=== PATIENT | female | born 2000 | race Two or more races ===

== ENCOUNTER 2025-01-23 12:13 | Emergency (ER) | payer OTHER ==
[~2025-01-23] VITALS: Ht 154.9 cm; Wt 95.6 kg
--- NOTE | 2025-01-23 12:44 | ED.PDOC ---
Musculoskeletal HPI Comments 24 year old female with no past medical history presents to the emergency department with a chief complaint of atraumatic LT arm pain onset 1 day. Patient states she began experiencing LT arm pain located to the lateral humeurs, worse when lifting arm, pain radiates to LT side chest wall, rates pain as moderate. She had control placed August 2024 on LT arm, LMP was July 2024. Patient describes pain as a squeezing sensation. No other symptoms or modifying factors present at this time. Denies headache head injury back pain Denies fever chills nausea/vomiting Denies shortness of breath Denies fall, injury Chief Complaint: Upper Extremity Time Seen by MD: 12:30 Reviewed Notes: Nurses Notes, Medications, Allergies Allergies: Coded Allergies: NO KNOWN ALLERGIES (Unverified , 01/23/25) Home Meds Active Scripts Nitrofurantoin Monohydrate Mac (Macrobid) 100 Mg Cap, 100 MG PO BID for 5 Days, #10 CAP 0 Refills Prov:FAMILIA SEYMOUR NP 01/23/25 Ibuprofen Micronized (Ibuprofen) 600 Mg Tab, 600 MG PO TID for 10 Days, #30 TAB 0 Refills Prov:FAMILIA SEYMOUR DIRECTOR AUTOMOTIVE 01/23/25 Information Source: Patient Location: Left Extremity Location: Arm Timing: Days Prehospital treatment: None Severity: Moderate Able to Move Extremity: Yes Bear Weight: Limited Pain: Moderate Hand Dominance: Right Mechanism: Spontaneous Circumstances: Spontaneous Onset of Symptoms: Spontaneous Symptoms: Pain DVT Risk Factors: NONE Associated signs and symptoms: Arm pain (LT), Chest pain (LT sided) Past Medical History PAST MEDICAL HISTORY: Denies Surgical History: Denies all surgeries PATIENT COMPANION History: No Pertinent PATIENT COMPANION History Family History Family History: Reviewed,noncontributory to illness, No family hx of Cancer, No family hx of DM, No family hx of Heart magdy, No family hx of HTN, No family hx ofKidney magdy, No family hx of Liver magdy, No family hx of Lung magdy, No family hx of Stroke Social History Smoker: Non-Smoker Alcohol: Denies ETOH Use Drugs: Denies Drug Use Lives In: Home All Other Systems: Reviewed and Negative (as per HPI) Physical Exam General Appearance: Normal HEENT: Normal ENT Inspection, Pharynx Normal, TMs Normal Neck: Other (RT spurling test positive) Respiratory: Chest Non-Tender, Lungs Clear, No Accessory Muscle Use, No Respiratory Distress, Normal Breath Sounds Cardiovascular: No Murmur, No Gallop, Regular Rate/Rhythm, Other (reproducible pain to LT anterior chest wall with palpation) Breast Exam: Deferred Gastrointestinal: No Organomegaly, Non Tender, No Pulsatile Mass, Normal Bowel Sounds, Soft Genitalia: Deferred Pelvic: Deferred Rectal: Deferred Extremities: No calf tenderness, Normal capillary refill, No pedal edema Musculoskeletal : Location: Left Extremity Location: Arm (LT upper arm tenderness that is aggravated with forward flexion, vascular sensation intact, radial pulses 2+, cap refill less than 3 seconds ) Apperance: Normal Neurologic: Alert, 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 Was a procedure done?: No Differential Diagnosis EXT Differential Diagnosis: Other X-Ray, Labs, Meds, VS Vital Signs Date Time Temp Pulse Resp B/P (MAP) Pulse Ox O2 Delivery O2 Flow Rate FiO2 01/23/25 15:46 98.6 01/23/25 12:56 98.8 79 16 119/71 (87) 98 98.8 01/23/25 12:56 79 16 98 Room Air 01/23/25 12:47 98.3 01/23/25 12:36 72 01/23/25 12:30 98.5 77 17 115/72 (86) 98 98.5 Lab Test 01/23/25 12:57 01/23/25 12:41 Range/Units Urine Color Light-yellow Yellow Urine Clarity Turbid H Clear Urine pH 7.0 5.0-9.0 Urine Specific [place] 1.024 1.001-1.035 Urine Protein Trace H Negative Urine Ketones Negative Negative Urine Blood Negative Negative /uL Urine Nitrite Negative Negative Urine Bilirubin Negative Negative Urine Urobilinogen Normal Negative mg/dL Urine Leukocyte Esterase 3+ Negative /uL Urine RBC 9 0 - 4 /hpf Urine Microscopic WBC 49 H 0-5 /HPF Urine Squamous Epithelial Cells Many <5 /hpf Urine Bacteria Few H None Seen /hpf Urine Mucus Few None Seen Urine Sperm Present None Seen /hpf Urine Glucose Normal Normal mg/dL Urine Test Negative Negative White Blood Count 5.3 4.4-10.8 10^3/uL Red Blood Count 5.27 H 4.0-5.20 10^6/uL Hemoglobin 14.1 12.2-16.2 g/dL Hematocrit 42.3 36.0-46.0 % Mean Corpuscular Volume 80.3 80.0-100.0 fL Mean Corpuscular Hemoglobin 26.8 L 28.0-32.0 pg Mean Corpuscular Hemoglobin Concent 33.3 32.0-36.0 g/dL Red Cell Distribution Width 17.0 H 11.8-14.3 % Platelet Count 233 140-450 10^3/uL Mean Platelet Volume 9.0 6.9-10.8 fL Neutrophils (%) (Auto) 62.1 37.0-80.0 % Lymphocytes (%) (Auto) 28.7 10.0-50.0 % Monocytes (%) (Auto) 7.9 0.0-12.0 % Eosinophils (%) (Auto) 0.8 0.0-7.0 % Basophils (%) (Auto) 0.5 0.0-2.0 % Neutrophils # (Auto) 3.3 1.6-8.6 10 ^3/uL Lymphocytes # (Auto) 1.5 0.4-5.4 10 ^3/uL Monocytes # (Auto) 0.4 0-1.3 10 ^3/uL Eosinophils # (Auto) 0 0-0.8 10 ^3/uL Basophils # (Auto) 0 0-0.2 10 ^3/uL Nucleated Red Blood Cells 0.0 % Sodium Level 143 136-145 mmol/L Potassium Level 4.1 3.5-5.1 mmol/L Chloride Level 109 H 98-107 mmol/L Carbon Dioxide Level 26 20-31 mmol/L Anion Gap 8 5-15 Blood Urea Nitrogen 6 L 9-23 mg/dL Creatinine 0.76 0.550-1.02 mg/dL Glomerular Filtration Rate Calc 114 >90 mL/min BUN/Creatinine Ratio 7.9 L 10.0-20.0 Serum Glucose 92 74-106 mg/dL Calcium Level 10.6 H 8.7-10.4 mg/dL Magnesium Level 2.0 1.6-2.6 mg/dL Total Bilirubin 0.8 0.2-1.0 mg/dL Aspartate Amino Transferase (AST) 16 13-40 U/L Alanine Aminotransferase (ALT) 18 7-40 U/L Alkaline Phosphatase 78 46-116 U/L Troponin I High Sensitivity < 3 L </=34 ng/L Total Protein 7.7 5.7-8.2 g/dL Albumin 5.0 H 3.2-4.8 g/dL Current Medications Medications (Trade) Dose Ordered Sig/Lore Route Start Time Stop Time Status Last Admin Acetaminophen (Tylenol Tablet) 650 mg ONCE ONCE PO 01/23/25 12:45 01/23/25 12:46 DC 01/23/25 12:47 Ceftriaxone Sodium (Rocephin) 1,000 mg ONCE ONCE IM 01/23/25 15:00 01/23/25 15:19 DC 01/23/25 15:46 Ketorolac Tromethamine (Toradol Injection) 60 mg ONCE ONCE IM 01/23/25 15:00 01/23/25 15:19 DC 01/23/25 15:45 [place] [id number] Ph: [phone] DIAGNOSTIC IMAGING Diagnostic Imaging Report : [id number] Signed PATIENT: JOSE G HATHAWAY MACCT: [id number] UNIT: [id number] : 2000 LOC: ER ROOM / BED: / AGE / SEX: 24 / F ADM STATUS: REG ER SERVICE 1235 ORDERING PHYSICIAN: FAMILIA SEYMOUR DIRECTOR AUTOMOTIVE PROCEDURE(s): LUDVT - LT Upper DVT REASON: PAIN ORDER NUMBER(s): [id number], ACCESSION NUMBER(s): [id number] Clinical History: PAIN Comparison: None Technique: Duplex Doppler evaluation of the deep venous system of the left lower extremity from the common femoral vein to the popliteal vein including color Doppler and spectral/pulsed waveform analysis was performed. Findings: The common femoral vein demonstrates appropriate compressibility and waveform variability. There is compressibility/patency of the great saphenous vein at the proximal thigh. The femoral vein demonstrates appropriate compressibility and waveform variability. The deep femoral vein demonstrates appropriate compressibility and waveform variability. The popliteal vein demonstrates appropriate compressibility and waveform variab ility. There is normal compressibility at the tibioperoneal trunk. Impression: No leftdeep venous thrombosis. If clinical concern/symptoms persist or worsen, short-interval follow-up study is suggested. ATED BY: ARIANNA ZARATE MD DICTATED DATE/TIME: 01/23/251450 SIGNED BY: ARIANNA ZARATE MD SIGNED DATE/TIME: 01/23/251450 CC: X-Ray, Labs, Meds, VS Comment 24 year old female with no past medical history presents to the emergency department with a chief complaint of LT arm pain onset 1 day. Patient arrives alert and oriented, ABC's intact, afebrile, vital signs stable, saturating well in room air Peripheral IV insertion+ labs were ordered. CBC was ordered to exclude anemia, blood loss, or infection. CMP was ordered to exclude electrolyte abnormalities, renal failure, dehydration, hyperglycemia and/or liver enzyme abnormalities. Troponin was ordered to rule out myocardial infarction, or congestive heart failure. Urinalysis was ordered to rule out UTI or hematuria. Magnesium PREGUA Diagnostic imaging ordered by me and results interpreted by radiology : US LT UPPER DVT: Impression: No leftdeep venous thrombosis. If clinical concern/symptoms persist or worsen, short-interval follow-up study is suggested. Labs showed incidental UTI Vital signs stable patient stable Patient tolerating p.o. fluids Encouraged parents to increase water intake Practice good personal hygiene. Always wipe from front to back Drink plenty of fluids to help flush bacteria out of the urinary tract Empty bladder completely as soon as you feel the urge Empty bladder after intercourse Prescribed p.o. antibiotics for presentation of symptoms Complete course of antibiotic therapy even if symptoms improve or resolve. There should be no leftover antibiotics as this can lead to antibiotic resistant bacteria and even worse infection. Parents verbalized understanding. Potential side effects discussed with patient including abdominal pain, nausea, diarrhea. Patient was given: Acetaminophen 650 mg PO,ceftriaxone 1000 mg IM, Ketorolac 60 mg IM. Tolerated medications with no adverse reaction. Additional MDM Review of External, Non-ED records: External records reviewed. Discussion with independent historian (EMS, family) history obtained from the patient/parents (if applicable) at bedside Chronic conditions affecting care: None Social determinants of health affecting care: None Consideration of admission (observation or admission): I considered escalation of care to admission for this patient, however given the reassuring workup, the patient is safe for outpatient management. Time of 1ST Reevaluation: 13:00 Reevaluation 1ST: Improved Patient Education/Counseling: Diagnosis, Treatment Family Education/Counseling: No Family Present Departure 1 Departure Time of Disposition: 15:30 Impression: Primary Impression: UTI (urinary tract infection) Qualified Codes: N30.00 - Acute cystitis without hematuria Additional Impression: Cervical radicular pain Disposition: HOME / SELF CARE / HOMELESS Condition: Stable e-Prescriptions Nitrofurantoin Monohydrate Mac (Macrobid) 100 Mg Cap 100 MG PO BID for 5 Days, #10 CAP 0 Refills Prov: FAMILIA SEYMOUR NP 01/23/25 Ibuprofen Micronized (Ibuprofen) 600 Mg Tab 600 MG PO TID for 10 Days, #30 TAB 0 Refills Prov: FAMILIA SEYMOUR NP 01/23/25 Critical Care Note Critical Care Time?: No Stability Stability form required: No Heart Score Heart Score: Heart Score Response (Comments) Value History N/A 0 EKG N/A 0 Age N/A 0 Risk Factors N/A 0 Troponin N/A 0 Total 0 I personally scribed for FAMILIA SEYMOUR DIRECTOR AUTOMOTIVE ([email or web address]) on 01/23/25 at 12:44. Electronically submitted by Payton Nath ([email or web address]). I personally scribed for FAMILIA SEYMOUR NP ([email or web address]) on 01/23/25 at 12:47. Electronically submitted by Payton Nath ([email or web address]). I personally scribed for FAMILIA SEYMOUR NP ([email or web address]) on 01/23/25 at 15:32. El ectronically submitted by Payton Nath ([email or web address]). FAMILIA SEYMOUR NP Jan 23, 2025 12:44
[2025-01-23] MEDS: ACETAMINOPHEN 325 MG TAB PO ONE (12:47)
[2025-01-23 12:56] VITALS: BP 119/71; PULSE 79; RESP 16; O2SAT 98
[2025-01-23 12:56] LABS: Hematocrit 42.3 % (36.0-46.0); Hemoglobin 14.1 g/dL (12.2-16.2); Mean Corpuscular Hemoglobin 26.8 pg (28.0-32.0); Mean Corpuscular Volume 80.3 fL (80.0-100.0); Nucleated Red Blood Cells % 0.0 %
[2025-01-23 13:10] LABS: Alanine Aminotransferase 18 U/L (7-40); Alkaline Phosphatase 78 U/L (46-116); Anion Gap 8 (5-15); BUN/Creatinine Ratio 7.9 (10.0-20.0); Carbon Dioxide 26 mmol/L (20-31); Glucose 92 mg/dL (74-106); Magnesium 2.0 mg/dL (1.6-2.6); Potassium 4.1 mmol/L (3.5-5.1); Sodium 143 mmol/L (136-145); Total Protein 7.7 g/dL (5.7-8.2)
[2025-01-23 13:11] LABS: Bilirubin, Total 0.8 mg/dL (0.2-1.0)
[2025-01-23 13:13] LABS: Albumin 5.0 g/dL (3.2-4.8); Blood Urea Nitrogen 6 mg/dL (9-23); Calcium 10.6 mg/dL (8.7-10.4); Chloride 109 mmol/L (98-107)
[2025-01-23 13:22] LABS: Urine Protein, UAD TRACE (Negative)
--- NOTE | 2025-01-23 14:53 | DVH ---
Clinical History: PAIN Comparison: None Technique: Duplex Doppler evaluation of the deep venous system of the left lower extremity from the common femor al vein to the popliteal vein including color Doppler and spectral/pulsed waveform analysis was perfo rmed. Findings: The common femoral vein demonstrates appropriate compressibility and waveform variability. There is compressibility/patency of the great saphenous vein at the proximal thigh. The femoral vein demonstrates appropriate compressibility and waveform variability. The deep femoral vein demonstrates appropriate compressibility and waveform variability. The popliteal vein demonstrates appropriate compressibility and waveform variability. There is normal compressibility at the tibioperoneal trunk. Impression: No leftdeep venous thrombosis. If clinical concern/symptoms persist or worsen, short-interval follow-up study is suggested.
[2025-01-23] MEDS ORDERED: IBUP1TAB5 PO (15:30)
[2025-01-23] MEDS ORDERED: NITR-87 PO (15:30)
[2025-01-23] MEDS: KETOROLAC TROMETH 60MG/2ML VIAL IM ONE (15:45)
[2025-01-23 15:46] VITALS: TEMP 98.6
[2025-01-23] MEDS: cefTRIAXone SOD 1,000 MG VL IM ONE (15:46)
--- NOTE | 2025-01-24 10:07 | ECG ---
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
== END 2025-01-23 16:10 | disposition home or self-care (01) ==
LOC: ER 12:13
DX: N39.0 Urinary tract infection, site not specified (principal); M54.12 Radiculopathy, cervical region; Z79.1 Long term (current) use of non-steroidal anti-inflammatories (NSAID); Z79.899 Other long term (current) drug therapy
CPT/HCPCS: 36415; 80053; 81001; 81025; 83735; 84484; 85025; 93005; 93971; 96372; 99285; J0696; J1885

== ENCOUNTER 2025-02-05 17:08 | Emergency (ER) | payer OTHER ==
[~2025-02-05 17:08] MED LIST: IBUP1TAB5 PO; NITR-87 PO
== END 2025-02-05 17:52 | disposition left against medical advice (07) ==
LOC: ER 17:08
DX: R51.9 Headache, unspecified (principal); Z53.21 Procedure and treatment not carried out due to patient leaving prior to being seen by health care provider

== ENCOUNTER 2025-02-11 09:49 | Emergency (ER) | payer MEDICAID, OTHER ==
[~2025-02-11] VITALS: Ht 154.9 cm; Wt 97.8 kg
--- NOTE | 2025-02-11 10:16 | ED.PDOC ---
History of Present Illness HPI Comments 25 year old female presents to the ED with a chief complaint of back pain onset 4 days. Patient states she was at work 4 days ago when she began experiencing upper RT back pain radiating to shoulder. Patient noticed pain worsens with lifting heavy objects, has taken Ibuprofen with intermittent relief of symptoms. Denies PMHx as well as fall, numbness/tingling, fever, chills, nausea, vomiting. No other symptoms or modifying factors present at this time. Chief Complaint: Back Pain Time Seen by MD: 10:00 Primary Care Provider: NONE Reviewed Notes: Medications, Allergies Allergies: Coded Allergies: NO KNOWN ALLERGIES (Unverified , 01/23/25) Home Meds Active Scripts Nitrofurantoin Monohydrate Mac (Macrobid) 100 Mg Cap, 100 MG PO BID for 5 Days, #10 CAP 0 Refills Prov:FAMILIA SEYMOUR NP 01/23/25 Ibuprofen Micronized (Ibuprofen) 600 Mg Tab, 600 MG PO TID for 10 Days, #30 TAB 0 Refills Prov:FAMILIA SEYMOUR [employer] 01/23/25 Information Source: Patient Mode of Arrival: Ambulatory Severity: Moderate Timing: Days Duration: Since onset Prehospital treatment: Pain Meds Past Medical History PAST MEDICAL HISTORY: Denies Surgical History: Denies all surgeries BDR History: No Pertinent BDR History Family History Family History: Reviewed,noncontributory to illness, No family hx of Cancer, No family hx of DM, No family hx of Heart magdy, No family hx of HTN, No family hx ofKidney magdy, No family hx of Liver magdy, No family hx of Lung magdy, No family hx of Stroke Social History Smoker: Non-Smoker Alcohol: Denies ETOH Use Drugs: Denies Drug Use Lives In: Home Constitutional: denies: chills, diaphoresis, fatigue, fever, malaise, sweats, weakness, others EENTM: denies: blurred vision, double vision, ear bleeding, ear discharge, ear drainage, ear pain, ear ringing, eye pain, eye redness, hearing loss, mouth pain, mouth swelling, nasal discharge, nose bleeding, nose congestion, nose pain, photophobia, tearing, throat pain, throat swelling, voice changes, others Respiratory: denies: cough, hemoptysis, orthopnea, SOB at rest, shortness of breath, SOB with excertion, stridor, wheezing, others Cardiovascular: denies: chest pain, dizzy spells, diaphoresis, Dyspnea on exertion, edema, irregular heart beat, left arm pain, lightheadedness, palpitations, PND, syncope, others Gastrointestinal: denies: abdomen distended, abdominal pain, blood streaked bowels, constipated, diarrhea, dysphagia, difficulty swallowing, hematemesis, melena, nausea, poor appetite, poor fluid intake, rectal bleeding, rectal pain, vomiting, others Genitourinary: denies: abnormal vagina bleeding, burning, dyspareunia, dysuria, flank pain, frequency, hematuria, incontinence, pain, , vagina discharge, urgency, others Neurological: denies: dizziness, fainting, headache, left sided numbness, left sided weakness, numbness, paresthesia, pre-existing deficit, right sided numb ness, right sided weakness, seizure, speech problems, tingling, tremors, weakness, others Musculoskeletal: reports: back pain; denies: gout, joint pain, joint swelling, muscle pain, muscle stiffness, neck pain, others Integumetry: denies: bruises, change in color, change in hair/nails, dryness, laceration, lesions, lumps, rash, wounds, others Allergic/Immunocompromised: denies: Difficulty Healing, Frequent Infections, Hives, Itching, others Hematologic/Lymphatic: denies: anemia, blood clots, easy bleeding, easy bruising, swollen glands, others Endocrine: denies: excessive hunger, excessive sweating, excessive thirst, excessive urination, flushing, intolerance to cold, intolerance to heat, unexplained weight gain, unexplained weight loss, others Psychiatric: denies: anxiety, bipolar disorder, depression, hopeless, panic disorder, schizophrenia, sleepless, suicidal, others All Other Systems: Reviewed and Negative Physical Exam General Appearance: Moderate Distress HEENT: Normal ENT Inspection, Pharynx Normal, TMs Normal Neck: Full Range of Motion, Non-Tender, Normal, Normal Inspection Respiratory: Chest Non-Tender, Lungs Clear, No Accessory Muscle Use, No Respiratory Distress, Normal Breath Sounds Cardiovascular: No Edema, No JVD, No Murmur, No Gallop, Normal Peripheral Pulses, Regular Rate/Rhythm Breast Exam: Deferred Gastrointestinal: No Organomegaly, Non Tender, No Pulsatile Mass, Normal Bowel Sounds, Soft Genitalia: Deferred Pelvic: Deferred Rectal: Deferred Extremities: No calf tenderness, Normal capillary refill, Normal inspection, Normal range of motion, Non-tender, No pedal edema Musculoskeletal : Apperance: Normal 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 Was a procedure done?: No Differential Dx Considerations may include: Muscle strain X-Ray, Labs, Meds, VS Vital Signs Date Time Temp Pulse Resp B/P (MAP) Pulse Ox O2 Delivery O2 Flow Rate FiO2 02/11/25 11:56 65 20 98 Room Air 02/11/25 11:56 97.9 20 121/83 (96) 98 97.9 02/11/25 09:52 99.0 107 16 121/70 (87) 100 99.0 Patient alert. Complaining of muscle pain. Vitals stable. Answering questions. No sign of any injury. Ambulating without difficulty. No leg swelling No shortness a breath. No acute process. X-rays were not done because physical examination was pristine. Was given prescription of Motrin. Explained to the patient. Was told to follow up with her primary care physician. Was told to come back if there is any problem. Time of 1ST Reevaluation: 10:30 Reevaluation 1ST: Improved Patient Education/Counseling: Diagnosis, Treatment, Prognosis Family Education/Counseling: No Family Present SEPSIS Sepsis Screen Date sepsis recognized/suspect: Feb 11, 2025 Time Sepsis recognized/suspect: 951 Recent Procedure: No On Antibiotic Therapy: No Respiratory Rate >20: No Heart Rate >90: Yes Temp<36 C (96.8 F) or >38.3 C: No SBP <90 or MAP <65 mmHG: No New Acute Mental Status Change: No Is the patient on CPAP, BIPAP,: No Vital Signs Date Time Temp Pulse Resp B/P (MAP) Pulse Ox O2 Delivery O2 Flow Rate FiO2 02/11/25 11:56 65 20 98 Room Air 02/11/25 11:56 97.9 20 121/83 (96) 98 97.9 02/11/25 09:52 99.0 107 16 121/70 (87) 100 99.0 Departure 1 Departure Time of Disposition: 12:41 Impression: Primary Impression: Musculoskeletal pain Disposition: 01 HOME / SELF CARE / HOMELESS Condition: Good Discharged With: Self Critical Care Note Critical Care Time?: No Stability Stability form required: No Heart Score Heart Score: Heart Score Response (Comments) Value History N/A 0 EKG N/A 0 Age N/A 0 Risk Factors N/A 0 Troponin N/A 0 Total 0 I personally scribed for SALINAS ROY MD ([email or web address]) on 02/11/25 at 10:16. Electronically submitted by Payton Nath ([email or web address]). SALINAS ROY MD Feb 11, 2025 10:16
[2025-02-11 11:56] VITALS: BP 121/83; PULSE 65; RESP 20; TEMP 97.9; O2SAT 98
[2025-02-11] MEDS: HYDROcodone-ACET 5/325MG TAB PO ONE (12:45)
== END 2025-02-11 14:08 | disposition home or self-care (01) ==
LOC: ER 09:49
DX: M79.18 Myalgia, other site (principal); M25.511 Pain in right shoulder; M54.9 Dorsalgia, unspecified

== ENCOUNTER 2025-02-16 10:58 | Emergency (ER) | payer MEDICAID ==
[~2025-02-16] VITALS: Ht 154.9 cm; Wt 97.5 kg
--- NOTE | 2025-02-16 11:53 | ED.PDOC ---
Back pain HPI HPI Comments A 25 YEAR OLD FEMALE PRESENTS TO THE ED WITH COMPLAINT OF LOWER BACK PAIN. PATIENT STATES SHE HAS BEEN EXPERIENCING LOWER BACK PAIN THAT IS WORSE WITH MOVEMENT FOR THE PAST 1 WEEK. PATIENT DENIES SADDLE ANESTHESIA, URINARY INCONTINENCE, BOWEL INCONTINENCE, DYSURIA, HEMATURIA, FEVER, CHILLS, SHORTNESS OF BREATH, CHEST PAIN, ABDOMINAL PAIN, NAUSEA, VOMITING, HEADACHE, OR OTHER COMPLAINTS. NO OTHER SYMPTOMS OR MODIFYING FACTORS AT THIS TIME. PATIENT IS ALERT, ORIENTED X 4, AND HAS STEADY GAIT. Time Seen by MD: 11:00 Primary Care Provider: NONE Reviewed Notes: Nurses Notes, Medications, Allergies Allergies: Coded Allergies: NO KNOWN ALLERGIES (Unverified , 01/23/25) Home Meds Active Scripts Nitrofurantoin Monohydrate Mac (Macrobid) 100 Mg Cap, 100 MG PO BID for 5 Days, #10 CAP 0 Refills Prov:FAMILIA SEYMOUR NP 01/23/25 Ibuprofen Micronized (Ibuprofen) 600 Mg Tab, 600 MG PO TID for 10 Days, #30 TAB 0 Refills Prov:FAMILIA SEYMOUR PATIENT SCHEDULER 01/23/25 Information Source: Patient Mode of Arrival: Ambulatory Timing: Days Duration: Since onset, Days Location of Back pain: (B) Lumbar Severity: Moderate Prehospital treatment: None Quality: Aching, Cramping Onset: Bending, Lifing History of: None Modifying Factors: Movement, Twisting, Walking Associated signs and symptoms: None Past Medical History PAST MEDICAL HISTORY: Denies Surgical History: Denies all surgeries 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: No 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 MANAGER History Family History Family History: Reviewed,noncontributory to illness, No family hx of Cancer, No family hx of DM, No family hx of Heart magdy, No family hx of HTN, No family hx ofKidney magdy, No family hx of Liver magdy, No family hx of Lung magdy, No family hx of Stroke Social History Smoker: Non-Smoker Alcohol: Denies ETOH Use Drugs: Denies Drug Use Lives In: Home Constitutional: denies: chills, diaphoresis, fatigue, fever, malaise, sweats, weakness, others EENTM: denies: blurred vision, double vision, ear bleeding, ear discharge, ear drainage, ear pain, ear ringing, eye pain, eye redness, hearing loss, mouth pain, mouth swelling, nasal discharge, nose bleeding, nose congestion, nose pain, photophobia, tearing, throat pain, throat swelling, voice changes, others Respiratory: denies: cough, hemoptysis, orthopnea, SOB at rest, shortness of breath, SOB with excertion, stridor, wheezing, others Cardiovascular: denies: chest pain, dizzy spells, diaphoresis, Dyspnea on exertion, edema, irregular heart beat, left arm pain, lightheadedness, palpitations, PND, syncope, others Gastrointestinal: denies: abdomen distended, abdominal pain, blood streaked bowels, constipated, diarrhea, dysphagia, difficulty swallowing, hematemesis, melena, nausea, poor appetite, poor fluid intake, rectal bleeding, rectal pain, vomiting, others Genitourinary: denies: abnormal vagina bleeding, burning, dyspareunia, dysuria, flank pain, frequency, hematuria, incontinence, pain, , vagina dischar ge, urgency, others Neurological: denies: dizziness, fainting, headache, left sided numbness, left sided weakness, numbness, paresthesia, pre-existing deficit, right sided numbness, right sided weakness, seizure, speech problems, tingling, tremors, weakness, others Musculoskeletal: reports: back pain (LOWER BACK PAIN), muscle pain; denies: gout, joint pain, joint swelling, muscle stiffness, neck pain, others Integumetry: denies: bruises, change in color, change in hair/nails, dryness, laceration, lesions, lumps, rash, wounds, others Allergic/Immunocompromised: denies: Difficulty Healing, Frequent Infections, Hives, Itching, others Hematologic/Lymphatic: denies: anemia, blood clots, easy bleeding, easy bruising, swollen glands, others Endocrine: denies: excessive hunger, excessive sweating, excessive thirst, excessive urination, flushing, intolerance to cold, intolerance to heat, unexplained weight gain, unexplained weight loss, others Psychiatric: denies: anxiety, bipolar disorder, depression, hopeless, panic disorder, schizophrenia, sleepless, suicidal, others All Other Systems: Reviewed and Negative Physical Exam General Appearance: No Apparent Distress, Obese HEENT: Normal ENT Inspection, PERRL/EOMI, Pharynx Normal, TMs Normal Neck: Full Range of Motion, Non-Tender, Normal, Normal Inspection Respiratory: Chest Non-Tender, Lungs Clear, No Accessory Muscle Use, No Respiratory Distress, Normal Breath Sounds Cardiovascular: No Edema, No JVD, No Murmur, No Gallop, Normal Peripheral Pulses, Regular Rate/Rhythm Breast Exam: Deferred Gastrointestinal: No Organomegaly, Non Tender, No Pulsatile Mass, Normal Bowel Sounds, Soft Genitalia: Deferred Pelvic: Deferred Rectal: Deferred Extremities: No calf tenderness, Normal capillary refill, Normal inspection, Normal range of motion, Non-tender, No pedal edema Musculoskeletal : Location: Bilateral Extremity Location: Back Apperance: Tenderness (AND MUSCLE SPASM IFEANYI LOW BACK, NO BONY TENDERNESS, SWELLING AND DEFORMITY. 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 Was a procedure done?: No Back Pain Differential Dx Differential Diagnosis: Musculoskeletal Pain, Strain Other Differential Diagnosis UTI X-Ray, Labs, Meds, VS Vital Signs Date Time Temp Pulse Resp B/P (MAP) Pulse Ox O2 Delivery O2 Flow Rate FiO2 02/16/25 12:05 98.2 72 16 119/72 (88) 94 98.2 Lab Test 02/16/25 11:55 02/16/25 11:54 Range/Units Urine Test Negative Negative Urine Color Yellow Yellow Urine Clarity Turbid H Clear Urine pH 7.0 5.0-9.0 Urine Specific [place] 1.024 1.001-1.035 Urine Protein Negative Negative Urine Ketones Negative Negative Urine Blood Negative Negative /uL Urine Nitrite Negative Negative Urine Bilirubin Negative Negative Urine Urobilinogen Normal Negative mg/dL Urine Leukocyte Esterase 1+ Negative /uL Urine RBC 2 0 - 4 /hpf Urine Microscopic WBC 11 H 0-5 /HPF Urine Squamous Epithelial Cells Mod <5 /hpf Urine Bacteria None seen None Seen /hpf Urine Mucus Few None Seen Urine Glucose Normal Normal mg/dL X-Ray, Labs, Meds, VS Comment EXTERNAL MEDICAL RECORDS REVIEWED: [NONE] INDEPENDENT HISTORIANS: [NONE] SOCIAL DETERMINANTS OF HEALTH: [NONE] LABS ORDERED: UA REVIEWED AND INTERPRETED RESULTS: IMAGING ORDERED: NONE TREATMENTS ORDERED: PROCEDURES PERFORMED: NONE CRITICAL CARE TIME: NONE I HAVE DISCUSSED THE PATIENT WITH THE ATTENDING PHYSICIAN DR. ROY AND HE AGREES WITH THE PATIENT'S PLAN OF CARE AND DISPOSITION. BASED ON HISTORY OF PRESENT ILLNESS, AND PHYSICAL EXAM, PATIENT WILL BE DISCHARGED HOME. DISCUSSED PLAN FOR DISCHARGE HOME WITH RX []. MEDICATION WARNINGS GIVEN. SHARED DECISION MAKING: PATIENT INSTRUCTED TO FOLLOW UP WITH PRIMARY CARE PROVIDER IN 1-2 DAYS FOR RE-EVALUATION OF SYMPTOMS. PATIENT VERBALIZES UNDERSTANDING TO RETURN TO ED FOR NEW OR WORSENING SYMPTOMS OR IF FOLLOW UP WITH PCP CANNOT BE OBTAINED. PATIENT FEELS COMFORTABLE GOING HOME AT THIS TIME. ALL QUESTIONS ADDRESSED AT TIME OF DISCHARGE. Time of 1ST Reevaluation: 13:20 Reevaluation 1ST: Improved Patient Education/Counseling: Diagnosis, Treatment, Need For Follow Up Family Education/Counseling: Diagnosis, Treatment, Need For Follow Up Medical Screening: No EMC Exist At This Time SEPSIS Sepsis Screen Vital Signs Date Time Temp Pulse Resp B/P (MAP) Pulse Ox O2 Delivery O2 Flow Rate FiO2 02/16/25 12:05 98.2 72 16 119/72 (88) 94 98.2 Departure 1 Departure Time of Disposition: 13:20 Impression: Primary Impression: Low back strain Qualified Codes: S39.012A - Strain of muscle, fascia and tendon of lower back, initial encounter Disposition: HOME / SELF CARE / HOMELESS Condition: Stable Additional Instructions: FOLLOW-UP WITH PCP IN 1 TO 2 DAYS. TAKE MEDICATIONS PRESCRIBED. RETURN TO ED FOR ANY NEW OR WORSENING SYMPTOMS. e-Prescriptions Methocarbamol (Methocarbamol) 750 Mg Tab 750 MG PO BID, #20 TAB Prov: BEATRIZ RAY 02/16/25 Ibuprofen (Ibuprofen) 800 Mg Tab 1 TAB PO TID, #30 TAB Prov: BEATRIZ RAY 02/16/25 Discharged With: Self Critical Care Note Critical Care Time?: No Stability Stability form required: No I personally scribed for BEATRIZ RAY ([email or web address]) on 02/16/25 at 11:53. Electronically submitted by Carroll Byrne ([email or web address]). I personally scribed for BEATRIZ RAY ([email or web address]) on 02/16/25 at 11:54. Electronically submitted by Carroll Byrne ([email or web address]). BEATRIZ RAY Feb 16, 2025 11:53
[2025-02-16 12:05] VITALS: BP 119/72; PULSE 72; RESP 16; TEMP 98.2; O2SAT 94
[2025-02-16 12:10] LABS: Urine Protein, UAD Negative (Negative)
[2025-02-16] MEDS: KETOROLAC TROMETH 60MG/2ML VIAL IM ONE (12:37)
[2025-02-16] MEDS ORDERED: IBUP-1456 PO (14:19)
[2025-02-16] MEDS ORDERED: METH-1182 PO (14:19)
== END 2025-02-16 13:14 | disposition home or self-care (01) ==
LOC: ER 11:04
DX: S39.012A Strain of muscle, fascia and tendon of lower back, initial encounter (principal); X58.XXXA Exposure to other specified factors, initial encounter; Y93.89 Activity, other specified; Y92.89 Other specified places as the place of occurrence of the external cause; Y99.8 Other external cause status
CPT/HCPCS: 81001; 81025

== ENCOUNTER 2025-02-28 19:40 | Emergency (ER) | payer MEDICAID ==
[~2025-02-28] VITALS: Ht 154.9 cm; Wt 97.7 kg
[~2025-02-28 19:40] MED LIST changes: +IBUP-1456 PO; +METH-1182 PO
[2025-02-28 19:42] VITALS: BP 106/56; PULSE 92; RESP 18; TEMP 98.6; O2SAT 98
--- NOTE | 2025-02-28 20:24 | ED.PDOC ---
GI ASSESSMENT HPI Comments 25-year-old female with no significant past medical history presents to the ED for the chief complaint of diffuse abdominal pain with associated fatigue, cramping and nausea. Patient is noted to be 2-3 weeks , and is , patient states her abdominal pain is started 1 day ago with no alleviating factors. Patient is alert and oriented x4, GCS is 15, patient is ambulatory. Patient denies any abnormal vaginal bleeding, spotting, chest pain, shortness of breath, diarrhea, or any other associated symptoms, modifiers, or factors at this time. PHYSICAL EXAM: General: Awake, alert and oriented. Mild distress. Skin: Skin in warm, dry and intact. Appropriate color for ethnicity. HEENT: The head is normocephalic and atraumatic. Conjunctivae are clear without exudates or hemorrhage. Sclera is non-icteric. EOM are intact. No signs of nystagmus. Eyelids are normal in appearance without swelling or lesions. Oral mucosa is pink and moist Neck: The neck is supple with normal range of motion. No JVD. Cardiac: Heart rate and rhythm are normal. No murmurs, gallops, or rubs are auscultated. Respiratory: No signs of respiratory distress. Lung sounds are clear in all lobes bilaterally without rales, rhonchi, or wheezes. Abdominal: Abdomen is soft, non-tender without distention, guarding or rigidity. Bowel sounds are present and normoactive in all four quadrants. Extremities: Upper and lower extremities are atraumatic in appearance without deformity or edema. Neurological: The patient is awake, alert and oriented to person, place, and time with normal speech. Speech is clear. There is no facial asymmetry. Psychiatric: Appropriate mood and affect. Good judgement and insight. REVIEW OF SYSTEMS: General: +Fatigue, no chills, no fever HEENT: No sore throat, no earache, no congestion, no neck pain. Cardiac: No chest pain. No palpitations. Lungs: No shortness of breath, no cough. GI: + nausea, no vomiting, no diarrhea, no constipation, no abdominal pain : No dysuria, frequency, or urgency. No hematuria. Musculoskeletal: No joint pain , no joint swelling, no extremity edema. Skin: No rash, no itching. Neuro: No headache, no dizziness, no weakness Chief Complaint: Abdominal Pain Time Seen by MD: 20:19 Primary Care Provider: NONE Reviewed Notes: Nurses Notes, Medications, Allergies Allergies: Coded Allergies: NO KNOWN ALLERGIES (Unverified , 01/23/25) Home Meds Active Scripts Methocarbamol (Methocarbamol) 750 Mg Tab, 750 MG PO BID, #20 TAB Prov:BEATRIZ RAY 02/16/25 Ibuprofen (Ibuprofen) 800 Mg Tab, 1 TAB PO TID, #30 TAB Prov:BEATRIZ RAY 02/16/25 Nitrofurantoin Monohydrate Mac (Macrobid) 100 Mg Cap, 100 MG PO BID for 5 Days, #10 CAP 0 Refills Prov:FAMILIA SEYMOUR NP 01/23/25 Ibuprofen Micronized (Ibuprofen) 600 Mg Tab, 600 MG PO TID for 10 Days, #30 TAB 0 Refills Prov:FAMILIA SEYMOUR SENIOR STORAGE ENGINEER 01/23/25 Information Source: Patient Mode of Arrival: Ambulatory Timing: Weeks Duration: Intermittent Prehospital treatment: None Quality: Aching Vomitus: None Stool: Normal Severity: Mild Recent: None Recent Hx of: Current Pain Location: Diffuse Modifying Factors: Position, Movement Associated sign and symptoms: Nausea, Abdominal Pain Past Medical History PAST MEDICAL HISTORY: Denies Surgical History: Denies all surgeries TOY ASSEMBLER History: No Pertinent TOY ASSEMBLER History Family History Family History: Reviewed,noncontributory to illness, No family hx of Cancer, No family hx of DM, No family hx of Heart magdy, No family hx of HTN, No family hx ofKidney magdy, No family hx of Liver magdy, No family hx of Lung magdy, No family hx of Stroke Social History Smoker: Non-Smoker Alcohol: Denies ETOH Use Drugs: Denies Drug Use Lives In: Home Was a procedure done? Was a procedure done?: No GI differential Dx Differential Diagnosis: Appendicitis, Bowel Obstruction, Cholangitis, Cholecystitis, Constipation, Ectopic , Gastritis/PUD, Gastroenteritis, Ovarian cyst/torsion, Pancreatitis, Trauma intraabdominal, Urinary Obstruction, UTI, Urolithiasis, Drug toxicity, Electrolyte Imbalance, Food Poisoning, , Stress Ulcer, Kidney Stone X-Ray, Labs, Meds, VS Vital Signs Date Time Temp Pulse Resp B/P (MAP) Pulse Ox O2 Delivery O2 Flow Rate FiO2 02/28/25 19:42 98.6 92 18 106/56 98 98.6 Time of 1ST Reevaluation: 08:50 Reevaluation 1ST: Unchanged Patient Education/Counseling: Diagnosis, Treatment, Need For Follow Up Family Education/Counseling: Diagnosis, Treatment, Need For Follow Up SEPSIS Sepsis Screen Date sepsis recognized/suspect: Feb 28, 2025 Time Sepsis recognized/suspect: 1941 Recent Procedure: No On Antibiotic Therapy: No Respiratory Rate >20: No Heart Rate >90: No Temp<36 C (96.8 F) or >38.3 C: No SBP <90 or MAP <65 mmHG: No New Acute Mental Status Change: No Is the patient on CPAP, BIPAP,: No Physician Orders C-Reactive Protein (02/28/25 20:31) Basic Metabolic Panel (02/28/25 20:31) Lipase (02/28/25 20:31) Beta Hcg, Quantitative (02/28/25 20:31) Urinalysis (02/28/25 20:32) Vital Signs Date Time Temp Pulse Resp B/P (MAP) Pulse Ox O2 Delivery O2 Flow Rate FiO2 02/28/25 19:42 98.6 92 18 106/56 98 98.6 Critical Care Note Critical Care Time?: No Stability Stability form required: No Heart Score Heart Score: Heart Score Response (Comments) Value History N/A 0 EKG N/A 0 Age N/A 0 Risk Factors N/A 0 Troponin N/A 0 Total 0 I personally scribed for REYNALDO BHARDWAJ MD ([email or web address]) on 02/28/25 at 20:24. Electronically submitted by Rian Lee ([email or web address]). I personally scribed for REYNALDO BHARDWAJ MD ([email or web address]) on 02/28/25 at 20:42. Electronically submitted by Rian Lee ([email or web address]). REYNALDO BHARDWAJ MD Feb 28, 2025 20:24
[2025-02-28 20:58] LABS: Chloride 106 mmol/L (98-107); Potassium 3.9 mmol/L (3.5-5.1); Sodium 138 mmol/L (136-145)
[2025-02-28 20:59] LABS: Anion Gap 8 (5-15); Calcium 9.7 mg/dL (8.7-10.4); Carbon Dioxide 24 mmol/L (20-31)
[2025-02-28 21:04] LABS: BUN/Creatinine Ratio 12.2 (10.0-20.0); Blood Urea Nitrogen 9 mg/dL (9-23); Glucose 95 mg/dL (74-106)
[2025-02-28 21:32] LABS: Urine Protein, UAD Negative (Negative)
[2025-02-28 21:42] LABS: Lipase 32 U/L (12-53)
[2025-02-28 22:08] LABS: Hematocrit 39.4 % (36.0-46.0); Hemoglobin 13.3 g/dL (12.2-16.2); Mean Corpuscular Hemoglobin 28.2 pg (28.0-32.0); Mean Corpuscular Volume 83.3 fL (80.0-100.0); Nucleated Red Blood Cells % 0.0 %
[2025-02-28] MEDS ORDERED: ACETAMINOPHEN 325 MG TAB PO ONE (22:15)
== END 2025-02-28 22:40 | disposition left against medical advice (07) ==
LOC: ER 19:40
DX: O26.891 Other specified pregnancy related conditions, first trimester (principal); R10.84 Generalized abdominal pain; Z3A.01 Less than 8 weeks gestation of pregnancy
CPT/HCPCS: 36415; 80048; 81001; 83690; 84702; 85025; 86141

== ENCOUNTER 2025-03-03 06:34 | Emergency (ER) | payer MEDICAID ==
[~2025-03-03] VITALS: Ht 154.9 cm; Wt 98.0 kg
[2025-03-03 06:36] VITALS: BP 120/80; PULSE 84; RESP 18; TEMP 98.1; O2SAT 97
== END 2025-03-03 09:41 | disposition left against medical advice (07) ==
LOC: ER 06:34
DX: R10.13 Epigastric pain (principal); R10.11 Right upper quadrant pain; R11.0 Nausea; Z53.21 Procedure and treatment not carried out due to patient leaving prior to being seen by health care provider

== ENCOUNTER 2025-03-17 06:57 | Emergency (ER) | payer MEDICAID ==
[~2025-03-17] VITALS: Ht 154.9 cm; Wt 98.5 kg
--- NOTE | 2025-03-17 07:38 | ED.PDOC ---
GI ASSESSMENT HPI Comments 25-year-old female presents where with the abdominal pain that began yesterday afternoon. She states she works at [employer] and from 3:00 a.m. to 9:00 a.m. she was lifting heavy boxes anywhere from 40-50 lb. She states later in the afternoon she began to have abdominal pain in the lower abdomen. She states she is currently 7 weeks . Has not seen an OBGYN. She has no abdominal bleeding. She has been having nausea through this . Has not taken anything for the discomfort. Denies any other symptoms. No diarrhea. Chief Complaint: Abdominal Pain Time Seen by MD: 07:19 Primary Care Provider: NONE Reviewed Notes: Medications, Allergies Allergies: Coded Allergies: NO KNOWN ALLERGIES (Unverified , 01/23/25) Home Meds Active Scripts Methocarbamol (Methocarbamol) 750 Mg Tab, 750 MG PO BID, #20 TAB Prov:BEATRIZ RAY 02/16/25 Ibuprofen (Ibuprofen) 800 Mg Tab, 1 TAB PO TID, #30 TAB Prov:BEATRIZ RAY 02/16/25 Nitrofurantoin Monohydrate Mac (Macrobid) 100 Mg Cap, 100 MG PO BID for 5 Days, #10 CAP 0 Refills Prov:FAMILIA SEYMOUR NP 01/23/25 Ibuprofen Micronized (Ibuprofen) 600 Mg Tab, 600 MG PO TID for 10 Days, #30 TAB 0 Refills Prov:FAMILIA SEYMOUR NP 01/23/25 Information Source: Patient Mode of Arrival: Ambulatory Past Medical History PAST MEDICAL HISTORY: Denies Surgical History: Denies all surgeries MECHANICAL ORDNANCE ASSEMBLER History: No Pertinent MECHANICAL ORDNANCE ASSEMBLER History Family History Family History: Reviewed,noncontributory to illness, No family hx of Cancer, No family hx of DM, No family hx of Heart magdy, No family hx of HTN, No family hx ofKidney magdy, No family hx of Liver magdy, No family hx of Lung magdy, No family hx of Stroke Social History Smoker: Non-Smoker Alcohol: Denies ETOH Use Drugs: Denies Drug Use Lives In: Home Constitutional: denies: chills, diaphoresis, fatigue, fever, malaise, sweats, weakness, others EENTM: denies: blurred vision, double vision, ear bleeding, ear discharge, ear drainage, ear pain, ear ringing, eye pain, eye redness, hearing loss, mouth pain, mouth swelling, nasal discharge, nose bleeding, nose congestion, nose pain, photophobia, tearing, throat pain, throat swelling, voice changes, others Respiratory: denies: cough, hemoptysis, orthopnea, SOB at rest, shortness of breath, SOB with excertion, stridor, wheezing, others Cardiovascular: denies: chest pain, dizzy spells, diaphoresis, Dyspnea on exertion, edema, irregular heart beat, left arm pain, lightheadedness, palpitations, PND, syncope, others Gastrointestinal: reports: abdominal pain, nausea; denies: abdomen distended, blood streaked bowels, constipated, diarrhea, dysphagia, difficulty swallowing, hematemesis, melena, poor appetite, poor fluid intake, rectal bleeding, rectal pain, vomiting, others Genitourinary: denies: abnormal vagina bleeding, burning, dyspareunia, dysuria, flank pain, frequency, hematuria, incontinence, pain, , vagina discharge, urgency, others Neurological: denies: dizziness, fainting, headache, left sided numbness, left sided weakness, numbness, paresthesia, pre-existing deficit, right sided numbness, right sided weakness, seizure, speech problems, tingling, tremors, weakness, others Musculoskeletal: denies: back pain, gout, joint pain, joint swelling, muscle pain, muscle stiffness, neck pain, others Integumetry: denies: bruises, change in color, change in hair/nails, dryness, laceration, lesions, lumps, rash, wounds, others Allergic/Immunocompromised: denies: Difficulty Healing, Frequent Infections, Hives, Itching, others Hematologic/Lymphatic: denies: anemia, blood clots, easy bleeding, easy bruising, swollen glands, others Endocrine: denies: excessive hunger, excessive sweating, excessive thirst, excessive urination, flushing, intolerance to cold, intolerance to heat, unexplained weight gain, unexplained weight loss, others Psychiatric: denies: anxiety, bipolar disorder, depression, hopeless, panic disorder, schizophrenia, sleepless, suicidal, others All Other Systems: Reviewed and Negative Physical Exam General Appearance: No Apparent Distress, Normal HEENT: Normal ENT Inspection, Pharynx Normal, TMs Normal Neck: Full Range of Motion, Non-Tender, Normal, Normal Inspection Respiratory: Chest Non-Tender, Lungs Clear, No Accessory Muscle Use, No Respiratory Distress, Normal Breath Sounds Cardiovascular: No Edema, No JVD, No Murmur, No Gallop, Normal Peripheral Pulses, Regular Rate/Rhythm Breast Exam: Deferred Gastrointestinal: No Organomegaly, No Pulsatile Mass, Normal Bowel Sounds, S oft, Other (Mild diffuse abdominal tenderness to the lower abdomen) Genitalia: Deferred Pelvic: Deferred Rectal: Deferred Extremities: No calf tenderness, Normal capillary refill, Normal inspection, Normal range of motion, Non-tender, No pedal edema Musculoskeletal : Apperance: Normal Neurologic: Alert, academy director II-XII nml as Tested, No Motor Deficits, Normal Affect, Normal Mood, No Sensory Deficits Cerebellar Function: Normal Reflexes: Normal Skin: Dry, Normal Color, Warm Lymphatic: No Adenopathy Was a procedure done? Was a procedure done?: No GI differential Dx Differential Diagnosis: N/A Other Differential Diagnosis UTI, appendicitis, ectopic , ligament pain, ovarian torsion, constipation, muscle strain X-Ray, Labs, Meds, VS Vital Signs Date Time Temp Pulse Resp B/P (MAP) Pulse Ox O2 Delivery O2 Flow Rate FiO2 03/17/25 09:39 72 16 99 Room Air 03/17/25 09:39 98.1 72 16 105/62 (76) 99 98.1 03/17/25 07:06 97.7 75 18 115/62 100 97.7 Lab Test 03/17/25 08:26 03/17/25 08:00 Range/Units White Blood Count 7.5 4.4-10.8 10^3/uL Red Blood Count 4.76 4.0-5.20 10^6/uL Hemoglobin 13.4 12.2-16.2 g/dL Hematocrit 39.7 36.0-46.0 % Mean Corpuscular Volume 83.2 80.0-100.0 fL Mean Corpuscular Hemoglobin 28.2 28.0-32.0 pg Mean Corpuscular Hemoglobin Concent 33.9 32.0-36.0 g/dL Red Cell Distribution Width 14.5 H 11.8-14.3 % Platelet Count 223 140-450 10^3/uL Mean Platelet Volume 9.3 6.9-10.8 fL Neutrophils (%) (Auto) 74.8 37.0-80.0 % Lymphocytes (%) (Auto) 17.4 10.0-50.0 % Monocytes (%) (Auto) 7.4 0.0-12.0 % Eosinophils (%) (Auto) 0.2 0.0-7.0 % Basophils (%) (Auto) 0.2 0.0-2.0 % Neutrophils # (Auto) 5.6 1.6-8.6 10 ^3/uL Lymphocytes # (Auto) 1.3 0.4-5.4 10 ^3/uL Monocytes # (Auto) 0.6 0-1.3 10 ^3/uL Eosinophils # (Auto) 0 0-0.8 10 ^3/uL Basophils # (Auto) 0 0-0.2 10 ^3/uL Nucleated Red Blood Cells 0.0 % Sodium Level 139 136-145 mmol/L Potassium Level 3.9 3.5-5.1 mmol/L Chloride Level 105 98-107 mmol/L Carbon Dioxide Level 26 20-31 mmol/L Anion Gap 8 5-15 Blood Urea Nitrogen < 5 L 9-23 mg/dL Creatinine 0.59 0.550-1.02 mg/dL Glomerular Filtration Rate Calc 130 >90 mL/min BUN/Creatinine Ratio 8.5 L 10.0-20.0 Serum Glucose 84 74-106 mg/dL Calcium Level 9.4 8.7-10.4 mg/dL Beta HCG, Quantitative 18991.9 H 1.5-4.2 mIU/mL Urine Color Light-yellow Yellow Urine Clarity Turbid H Clear Urine pH 6.0 5.0-9.0 Urine Specific [place] 1.016 1.001-1.035 Urine Protein Negative Negative Urine Ketones Trace Negative Urine Blood Negative Negative /uL Urine Nitrite Negative Negative Urine Bilirubin Negative Negative Urine Urobilinogen Normal Negative mg/dL Urine Leukocyte Esterase 1+ Negative /uL Urine RBC 1 0 - 4 /hpf Urine Microscopic WBC 2 0-5 /HPF Urine Squamous Epithelial Cells Mod <5 /hpf Urine Bacteria Few H None Seen /hpf Urine Mucus Few None Seen Urine Glucose Normal Normal mg/dL Current Medications Medications (Trade) Dose Ordered Sig/Lore Route Start Time Stop Time Status Last Admin Acetaminophen (Tylenol Tablet) 650 mg ONCE ONCE PO 03/17/25 08:15 03/17/25 08:16 DC 03/17/25 09:38 Ondansetron HCl (Zofran Po) 4 mg ONCE ONCE PO 03/17/25 08:15 03/17/25 08:16 DC 03/17/25 09:39 25-year-old female presents here with abdominal pain to the lower abdomen. She states she is currently 7 weeks . I have ordered blood work including a CBC BMP and an ultrasound of the uterus to rule out ectopic . Her beta quant has returned this proximally [id number]. I also have ordered some Tylenol and Zofran for the patient. Urine is positive for +1 leuk leukocyte esterase, +1 ketones and few bacteria. I also have ordered an ultrasound however prior chipped staining the ultrasound of the abdomen patient has eloped. She advised nursing staff in the waiting room that she has other children at home and she is no longer able to stay. I did not know that she had eloped. However after she eloped I did receive urine results which does demonstrates positive leukocyte and few bacteria. Given she is I have sent a prescription for Keflex to the pharmacy on file. I called her at the [phone] number listed on file at 12:55 p.m. from my cell phone as a blocked line and left a voicemail for her to call back and [facility] Time of 1ST Reevaluation: 07:40 Reevaluation 1ST: Unchanged Patient Education/Counseling: Diagnosis, Treatment Family Education/Counseling: No Family Present SEPSIS Sepsis Screen Date sepsis recognized/suspect: Mar 17, 2025 Time Sepsis recognized/suspect: 07 Recent Procedure: No On Antibiotic Therapy: No Respiratory Rate >20: No Heart Rate >90: No Temp<36 C (96.8 F) or >38.3 C: No SBP <90 or MAP <65 mmHG: No New Acute Mental Status Change: No Is the patient on CPAP, BIPAP,: No Vital Signs Date Time Temp Pulse Resp B/P (MAP) Pulse Ox O2 Delivery O2 Flow Rate FiO2 03/17/25 09:39 72 16 99 Room Air 03/17/25 09:39 98.1 72 16 105/62 (76) 99 98.1 03/17/25 07:06 97.7 75 18 115/62 100 97.7 Laboratory Tests Test 03/17/25 08:26 White Blood Count 7.5 10^3/uL (4.4-10.8) Medications Medications Dose Ordered Sig/Lore Route Start Time Stop Time Status Last Admin Dose Admin Acetaminophen 650 mg ONCE ONCE PO 03/17/25 08:15 03/17/25 08:16 DC 03/17/25 09:38 Ondansetron HCl 4 mg ONCE ONCE PO 03/17/25 08:15 03/17/25 08:16 DC 03/17/25 09:39 Departure 1 Departure Time of Disposition: 11:30 Impression: Primary Impression: Abdominal pain during Qualified Codes: O26.891 - Other specified related conditions, first trimester; R10.9 - Unspecified abdominal pain Additional Impressions: Intrauterine Urinary tract infection Qualified Codes: N30.00 - Acute cystitis without hematuria Disposition: LEFT AWOL/ELOPED Condition: Stable e-Prescriptions Cephalexin (KEFLEX CAPSULE) 250 Mg Cp 500 MG PO BID for 10 Days, #40 TAB Prov: BRITTNI FAJARDO MD 03/17/25 Critical Care Note Critical Care Time?: No Stability Stability form required: No Heart Score Heart Score: Heart Score Response (Comments) Value History N/A 0 EKG N/A 0 Age N/A 0 Risk Factors N/A 0 Troponin N/A 0 Total 0 I personally scribed for BRITTNI FAJARDO MD ([email or web address]) on 03/17/25 at 07:37. Electronically submitted by Yaquelin Rahman ([email or web address] I personally scribed for BRITTNI FAJARDO MD ([email or web address]) on 03/17/25 at 08:28. Electronically submitted by Yaquelin Rahman ([facility] I personally scribed for BRITTNI FAJARDO MD ([email or web address]) on 03/17/25 at 12:41. Electronically submitted by Yaquelin Rahman ([facility] [place]). BRITTNI FAJARDO MD Mar 17, 2025 07:37
[2025-03-17 09:13] LABS: Hematocrit 39.7 % (36.0-46.0); Hemoglobin 13.4 g/dL (12.2-16.2); Mean Corpuscular Hemoglobin 28.2 pg (28.0-32.0); Mean Corpuscular Volume 83.2 fL (80.0-100.0); Nucleated Red Blood Cells % 0.0 %
[2025-03-17 09:14] LABS: Chloride 105 mmol/L (98-107); Potassium 3.9 mmol/L (3.5-5.1); Sodium 139 mmol/L (136-145)
[2025-03-17 09:15] LABS: Anion Gap 8 (5-15); Calcium 9.4 mg/dL (8.7-10.4); Carbon Dioxide 26 mmol/L (20-31)
[2025-03-17 09:20] LABS: Glucose 84 mg/dL (74-106)
[2025-03-17 09:24] LABS: BUN/Creatinine Ratio 8.5 (10.0-20.0); Blood Urea Nitrogen < 5 mg/dL (9-23)
[2025-03-17] MEDS: ACETAMINOPHEN 325 MG TAB PO ONE (09:38)
[2025-03-17 09:39] VITALS: BP 105/62; PULSE 72; RESP 16; TEMP 98.1; O2SAT 99
[2025-03-17] MEDS: ONDANSETRON ODT 4 MG TAB PO ONE (09:39)
[2025-03-17 10:56] LABS: Urine Protein, UAD Negative (Negative)
[2025-03-17] MEDS ORDERED: CEPH250C PO (12:58)
== END 2025-03-17 14:24 | disposition left against medical advice (07) ==
LOC: ER 07:01
DX: O00.01 Abdominal pregnancy with intrauterine pregnancy (principal); O26.891 Other specified pregnancy related conditions, first trimester; N39.0 Urinary tract infection, site not specified; Z3A.01 Less than 8 weeks gestation of pregnancy; Z79.899 Other long term (current) drug therapy
CPT/HCPCS: 36415; 80048; 81001; 84702; 85025; 99283; Q0162

== ENCOUNTER 2025-03-25 09:07 | Emergency (ER) | payer MEDICAID ==
[~2025-03-25] VITALS: Ht 154.9 cm; Wt 97.5 kg
[~2025-03-25 09:07] MED LIST changes: +CEPH250C PO
--- NOTE | 2025-03-25 09:14 | ED.PDOC ---
GUEST SERVICES MANAGER HPI Comments 25 y/o F, presents to the ED for CC of vaginal bleeding. Patient reports, that she has been experiencing vaginal spotting sudden onset, this morning (03/25/25); endorses currently being [id number] . Patient relays, that bleeding is only when wiping. Patient denies abdominal pain, vaginal discharge, back pain, trama, injury, or fall. No other symptoms or modifying factors are present at this time. Chief Complaint: Vaginal Bleed Time Seen by MD: 09:15 Reviewed Notes: Nurses Notes, Billing Rep Notes, Medications, Allergies Allergies: Coded Allergies: NO KNOWN ALLERGIES (Unverified , 01/23/25) Home Meds Active Scripts Cephalexin (KEFLEX CAPSULE) 250 Mg Cp, 500 MG PO BID for 10 Days, #40 TAB Prov:BRITTNI FAJARDO MD 03/17/25 Methocarbamol (Methocarbamol) 750 Mg Tab, 750 MG PO BID, #20 TAB Prov:BEATRIZ RAY 02/16/25 Ibuprofen (Ibuprofen) 800 Mg Tab, 1 TAB PO TID, #30 TAB Prov:BEATRIZ RAY 02/16/25 Nitrofurantoin Monohydrate Mac (Macrobid) 100 Mg Cap, 100 MG PO BID for 5 Days, #10 CAP 0 Refills Prov:FAMILIA SEYMOUR NP 01/23/25 Ibuprofen Micronized (Ibuprofen) 600 Mg Tab, 600 MG PO TID for 10 Days, #30 TAB 0 Refills Prov:FAMILIA SEYMOUR NP 01/23/25 Information Source: Patient, Emergency Med Personnel Mode of Arrival: EMS Timing: Days Prehospital treatment: None Severity: Moderate Vaginal Discharge: None Vaginal Lesions: None Vaginal Mass: None Onset Of Mass/Bleeding: Spontaneous Sexual Activity: Last Consensual [place]: Unknown Control: None History of: Current Blood Type: Unknown Associated Signs and Symptoms: Vaginal Bleeding Past Medical History PAST MEDICAL HISTORY: Denies Surgical History: Denies all surgeries ORDNANCE ARTIFICER HELPER History: No Pertinent ORDNANCE ARTIFICER HELPER History Family History Family History: Reviewed,noncontributory to illness, No family hx of Cancer, No family hx of DM, No family hx of Heart magdy, No family hx of HTN, No family hx ofKidney magdy, No family hx of Liver magdy, No family hx of Lung magdy, No family hx of Stroke Social History Smoker: Non-Smoker Alcohol: Denies ETOH Use Drugs: Denies Drug Use Lives In: Home Constitutional: denies: chills, diaphoresis, fatigue, fever, malaise, sweats, weakness, others EENTM: denies: blurred vision, double vision, ear bleeding, ear discharge, ear drainage, ear pain, ear ringing, eye pain, eye redness, hearing loss, mouth pain, mouth swelling, nasal discharge, nose bleeding, nose congestion, nose pain, photophobia, tearing, throat pain, throat swelling, voice changes, others Respiratory: denies: cough, hemoptysis, orthopnea, SOB at rest, shortness of breath, SOB with excertion, stridor, wheezing, others Cardiovascular: denies: chest pain, dizzy spells, diaphoresis, Dyspnea on exertion, edema, irregular heart beat, left arm pain, lightheadedness, palpitations, PND, syncope, others Gastrointestinal: denies: abdomen distended, abdominal pain, blood streaked bowels, constipated, diarrhea, dysphagia, difficulty swallowing, hematemesis, melena, nausea, poor appetite, poor fluid intake, rectal bleeding, rectal pain, vomiting, others Genitourinary: reports: abnormal vagina bleeding; denies: burning, dyspareunia, dysuria, flank pain, frequency, hematuria, incontinence, pain, , vagina discharge, urgency, others Neurological: denies: dizziness, fainting, headache, left sided numbness, left sided weakness, numbness, paresthesia, pre-existing deficit, right sided numbness, right sided weakness, seizure, speech problems, tingling, tremors, weakness, others Musculoskeletal: denies: back pain, gout, joint pain, joint swelling, muscle pain, muscle stiffness, neck pain, others Integumetry: denies: bruises, change in color, change in hair/nails, dryness, laceration, lesions, lumps, rash, wounds, others Allergic/Immunocompromised: denies: Difficulty Healing, Frequent Infections, Hives, Itching, others Hematologic/Lymphatic: denies: anemia, blood clots, easy bleeding, easy bruising, swollen glands, others Endocrine: denies: excessive hunger, excessive sweating, excessive thirst, excessive urination, flushing, intolerance to cold, intolerance to heat, unexplained weight gain, unexplained weight loss, others Psychiatric: denies: anxiety, bipolar disorder, depression, hopeless, panic disorder, schizophrenia, sleepless, suicidal, others All Other Systems: Reviewed and Negative Physical Exam General Appearance: Moderate Distress HEENT: Normal ENT Inspection, Pharynx Normal, TMs Normal Neck: Full Range of Motion, Non-Tender, Normal, Normal Inspection Respiratory: Chest Non-Tender, Lungs Clear, No Accessory Muscle Use, No Respiratory Distress, Normal Breath Sounds Cardiovascular: No Edema, No JVD, No Murmur, No Gallop, Normal Peripheral Pulses, Regular Rate/Rhythm Breast Exam: Deferred Gastrointestinal: No Organomegaly, Non Tender, No Pulsatile Mass, Normal Bowel Sounds, Soft Genitalia: Deferred Pelvic: Deferred Rectal: Deferred Extremities: No calf tenderness, Normal capillary refill, Normal inspection, Normal range of motion, Non-tender, No pedal edema Musculoskeletal : Apperance: Normal Neurologic: Alert, terrazzo grinder II-XII nml as Tested, No Motor Deficits, Normal Affect, Normal Mood, No Sensory Deficits Cerebellar Function: Normal Reflexes: Normal Skin: Dry, Normal Color, Warm Peripheral Pulses: 3+ Radial (R), 3+ Radial (L) Lymphatic: No Adenopathy Was a procedure done? Was a procedure done?: No Differential Diagnosis (ORDNANCE ARTIFICER HELPER) Vaginal Bleeding: - Inevitable, - Threatened, UTI, Other (subchorionic hemorrhage) X-Ray, Labs, Meds, VS Vital Signs Date Time Temp Pulse Resp B/P (MAP) Pulse Ox O2 Delivery O2 Flow Rate FiO2 03/25/25 09:08 88 18 116/62 98 Lab Test 03/25/25 08:15 Range/Units Urine Color Yellow Yellow Urine Clarity Clear Clear Urine pH 6.5 5.0-9.0 Urine Specific [place] 1.021 1.001-1.035 Urine Protein Negative Negative Urine Ketones Negative Negative Urine Blood Trace H Negative /uL Urine Nitrite Negative Negative Urine Bilirubin Negative Negative Urine Urobilinogen Normal Negative mg/dL Urine Leukocyte Esterase Negative Negative /uL Urine RBC 2 0 - 4 /hpf Urine Microscopic WBC 2 0-5 /HPF Urine Squamous Epithelial Cells Few <5 /hpf Urine Bacteria None seen None Seen /hpf Urine Mucus Few None Seen Urine Glucose Normal Normal mg/dL Patient alert. Complaining of vaginal spotting. She is . Vitals stable. Answering questions. Urinalysis shows within normal limits. Ultrasound reviewed does show normal . Explained to the patient. Was told to follow up with her primary care physician. Was told to come back if there is any problem. Time of 1ST Reevaluation: 09:45 Reevaluation 1ST: Unchanged Patient Education/Counseling: Diagnosis, Treatment Family Education/Counseling: No Family Present Departure 1 Departure Time of Disposition: 10:26 Impression: Primary Impression: Vaginal bleeding during Disposition: 01 HOME / SELF CARE / HOMELESS Condition: Good Discharged With: Self Critical Care Note Critical Care Time?: No Stability Stability form required: No Heart Score Heart Score: Heart Score Response (Comments) Value History N/A 0 EKG N/A 0 Age N/A 0 Risk Factors N/A 0 Troponin N/A 0 Total 0 I personally scribed for SALINAS ROY MD ([email or web address]) on 03/25/25 at 09:14. Electronically submitted by Emerita Veloz ([employer]). I personally scribed for SALINAS ROY MD ([email or web address]) on 03/25/25 at 09:21. Electronically submitted by Emerita Veloz ([employer]). I personally scribed for SALINAS ROY MD ([email or web address]) on 03/25/25 at 09:27. Electronically submitted by Emerita Veloz ([employer]). I personally scribed for SALINAS ROY MD ([email or web address]) on 03/25/25 at 09:46. Electronically submitted by Emerita Veloz ([employer]). SALINAS ROY MD Mar 25, 2025 09:14
[2025-03-25 09:38] LABS: Urine Protein, UAD Negative (Negative)
--- NOTE | 2025-03-25 11:03 | DVH ---
OBSTETRIC ULTRASOUND PRIOR TO 14 WEEKS CLINICAL INDICATION: bleeding TECHNIQUE: Multiple grayscale ultrasound images were obtained of the pelvis via transabdominal appro ach for obstetric evaluation. Limited color Doppler and spectral Doppler acquisitions were also obtai davie. COMPARISON: None FINDINGS: Uterus: 9.4 x 7.7 x 5.1 cm. There is a single intrauterine gestational sac is visualized. A richa e is visualized measuring 0.76 cm compatible with an estimated gestational age of 6 weeks, 5 days. F etal cardiac activity is present with heart rate of 153 beats per minute. A normal yolk sac is prese nt. Right adnexa: right ovary 3.0 x 1.6 x 2.7 cm. Normal arterial blood flow in the ovary. No right adne xal mass seen. Left adnexa: left ovary 3.3 x 3.2 x 2.2 cm. Normal arterial blood flow in the ovary. No left adnexal mass seen. Other: Small amount of fluid in the lower uterine segment. IMPRESSION: 1. Single living intrauterine with an estimated gestational age of 7 weeks, 2 days, corre sponding to an estimated date of delivery of 11/09/2025.
[2025-03-25 11:15] VITALS: PULSE 76; RESP 18; O2SAT 99
[2025-03-25 11:16] VITALS: BP 105/49; PULSE 76; RESP 18; O2SAT 99
== END 2025-03-25 11:11 | disposition home or self-care (01) ==
LOC: ER 09:07
DX: O20.9 Hemorrhage in early pregnancy, unspecified (principal); Z79.1 Long term (current) use of non-steroidal anti-inflammatories (NSAID); Z79.899 Other long term (current) drug therapy; Z3A.01 Less than 8 weeks gestation of pregnancy
CPT/HCPCS: 76801; 81001